=== PATIENT | female | born 1960 | race Caucasian/White ===

== ENCOUNTER 2024-03-19 08:02 | Inpatient (IN) ==
[2024-03-19] MEDS: Morphine 4 MG/ML VIAL (1 ml) IV ONE (09:49)
[2024-03-19] MEDS ORDERED: Al Hydrox/Mg Hydrox/Simet LIQ 30 ML UDC PO PRN (09:51)
[2024-03-19 10:10] LABS: ABS Basophils 0.1 10^3/uL (0.0-0.1); ABS Eosinophils 0.1 10^3/uL (0.0-0.5); ABS Lymphocytes 1.4 10^3/uL (1.0-4.8); ABS Nucleated RBC 0.01 10^3/ul; Eosinophil % 1.3 %; Hematocrit 42.4 % (35-45); Hemoglobin 14.4 g/dL (11.5-14.3); Lymphocyte % 11.8 %; Mean Corpuscular Hgb Conc 33.9 g/dL (31-36); Mean Corpuscular Volume 82.7 fL (80-97); Mean Platelet Volume 8.5 fL (7.5-11.2); Nucleated Red Blood Cells % 0.1 %/100WBC (0.0-0.8); Platelet Count 226 10^3/uL (150-450); Red Blood Count 5.13 10^6/uL (3.63-4.92); Red Cell Distribution Width 17.4 % (12-17); White Blood Count 11.6 10^3/uL (3.8-11.8)
[2024-03-19 11:09] LABS: Albumin 4.6 g/dL (3.5-5.7); Albumin/Globulin Ratio 1.9 (1-3); Calcium 10.6 mg/dL (8.6-10.3); Creatinine, Serum 0.79 mg/dL (0.51-0.95); Globulin 2.4 g/dL (2-4); Potassium 4.6 mmol/L (3.5-5.0); Total Bilirubin 0.9 mg/dL (0.2-1.0)
[2024-03-19] MEDS ORDERED: Dextrose 50% Syringe 50 ml 25 GM/50 ML SYRINGE IV PUSH PRN (12:06)
[2024-03-19] MEDS: Enoxaparin 40 MG/0.4 ML SYR SUBCUT SCH (13:50)
[2024-03-19] MEDS: NS 0.9% 1000 ml BAG 1,000 ML IV SCH (13:50)
[2024-03-19] MEDS: Morphine 2 MG/ML SYRINGE IV PRN (19:24)
[2024-03-19] MEDS ORDERED: Ondansetron 4 mg VIAL 2 MG/ML 2 ml VIAL IV PRN (20:03)
[2024-03-19] MEDS ORDERED: Metoclopramide 5 MG/ML VIAL (10 mg) IV PRN (20:03)
[2024-03-19] MEDS ORDERED: Naloxone 0.4 mg VIAL 0.4 mg/ml 1 ml VIAL IV PRN (20:03)
[2024-03-19] MEDS ORDERED: fentaNYL 100 mcg/2 ml 50 MCG/ML VIAL IV PRN (20:03)
[2024-03-19] MEDS ORDERED: NS 0.45% 1000 ml BAG 1,000 ML IV SCH (21:00)
[2024-03-19] MEDS: Insulin GLARGINE 100 un/ml 10 ml VIAL SUBCUT SCH (23:05)
[2024-03-19] MEDS: Lactated Ringers 1000 ml BAG 1,000 ML IV SCH (23:10)
[2024-03-20 06:21] LABS: ABS Basophils 0.1 10^3/uL (0.0-0.1); ABS Eosinophils 0.4 10^3/uL (0.0-0.5); ABS Lymphocytes 1.7 10^3/uL (1.0-4.8); ABS Monocytes 0.7 10^3/uL (0.0-0.9); ABS Neutrophils 4.9 10^3/uL (1.5-7.6); Eosinophil % 4.6 %; Hematocrit 39.6 % (35-45); Hemoglobin 13.1 g/dL (11.5-14.3); Lymphocyte % 22.1 %; Mean Corpuscular Hemoglobin 27.6 pg (27-33); Mean Corpuscular Volume 83.4 fL (80-97); Mean Platelet Volume 8.3 fL (7.5-11.2); Platelet Count 182 10^3/uL (150-450); Red Blood Count 4.75 10^6/uL (3.63-4.92); Red Cell Distribution Width 17.6 % (12-17); White Blood Count 7.7 10^3/uL (3.8-11.8)
[2024-03-20] MEDS ORDERED: ROPIVACAINE 5 MG/ML 30 ML BTL (0.5%) ONE (06:37)
[2024-03-20 06:51] LABS: Calcium 9.1 mg/dL (8.6-10.3); Creatinine, Serum 0.77 mg/dL (0.51-0.95); Magnesium 1.7 mg/dL (1.9-2.7); Potassium 4.5 mmol/L (3.5-5.0); eGFR CKD-EPI 85.6 (>60)
[2024-03-20] MEDS: Magnesium Sulfate 2 gm BAG 2 GM/50 ML BAG IVPB ONE (08:49)
[2024-03-20] MEDS: Scopolamine 1 mg/72hr PATCH TRANSDERM ONE (13:27)
[2024-03-20] MEDS ORDERED: ceFAZolin 2 GM PREMIX 2 GM/50 ML BAG ONE (13:48)
[2024-03-20] MEDS ORDERED: Tranexamic Acid 1 GM/100ML BAG 2,000 MG/200 ML BAG IV ONE (14:05)
[2024-03-20] MEDS ORDERED: Rocuronium 50 mg VIAL 10 mg/ml 5 ml VIAL (50 mg) ONE (15:14)
[2024-03-20] MEDS ORDERED: Ondansetron 4 mg VIAL 2 MG/ML 2 ml VIAL ONE (15:14)
[2024-03-20] MEDS ORDERED: Propofol 10 MG/ML 20 ML BTL ONE (15:14)
[2024-03-20] MEDS ORDERED: Lidocaine 2% PF 5 ML VIAL ONE (15:14)
[2024-03-20] MEDS ORDERED: Dexamethasone IV 4 MG/ML VIAL 1 ml VIAL ONE (15:14)
[2024-03-20] MEDS ORDERED: Midazolam 2 mg/2 ml VIAL 1 mg/ml 2 ml VIAL (2 mg) ONE (15:15)
[2024-03-20] MEDS ORDERED: fentaNYL 250 mcg/5 ml 50 MCG/ML 5 ml VIAL (250 MCG) ONE (15:15)
[2024-03-20] MEDS: Acetaminophen IV 1 GM/100ML 1,000 MG/100 ML BAG IV ONE (15:39)
[2024-03-20] MEDS: Buffered Lidocaine 1% SYRIN 1 ml INTRADERM ONE (15:39)
[2024-03-20] MEDS ORDERED: Sevoflurane BOTTLE ONE (16:21)
[2024-03-20] MEDS ORDERED: Ondansetron ODT 4 mg TAB 4 MG TAB PO PRN (16:43)
[2024-03-20] MEDS ORDERED: Calcium Carb (TUMS) 500 mg CHEW TAB PO PRN (16:43)
[2024-03-20] MEDS ORDERED: Magnesium Hydroxide LIQ 30 ML UDC PO PRN (16:43)
[2024-03-20] MEDS ORDERED: HYDROmorphone 0.5 MG/0.5 ML SYRINGE ONE (16:46)
[2024-03-20] MEDS: Lactated Ringers 1000 ml BAG 1,000 ML IV SCH ×2 (18:41→21:43)
[2024-03-20] MEDS: Nystatin TOP POWDER 15 GM BTL TOPICAL ONE (21:43)
[2024-03-20] MEDS: Magnesium Hydroxide LIQ 30 ML UDC PO SCH (23:32)
[2024-03-20] MEDS: ceFAZolin 2 GM PREMIX 2 GM/50 ML BAG IV SCH (23:35)
[2024-03-21 06:01] LABS: Hematocrit 35.5 % (35-45); Hemoglobin 11.8 g/dL (11.5-14.3); Mean Platelet Volume 8.3 fL (7.5-11.2); Platelet Count 246 10^3/uL (150-450)
[2024-03-21 06:22] LABS: Calcium 9.3 mg/dL (8.6-10.3); Creatinine, Serum 0.85 mg/dL (0.51-0.95); Potassium 5.3 mmol/L (3.5-5.0)
[2024-03-21] MEDS: Vitamin THERAPEUTIC TAB PO SCH (08:52)
[2024-03-21] MEDS: Enoxaparin 40 MG/0.4 ML SYR SUBCUT SCH (12:22)
[2024-03-21] MEDS: Lactulose 30 ml UDC PO PRN (14:23)
[2024-03-21 15:05] LABS: Calcium 8.8 mg/dL (8.6-10.3); Creatinine, Serum 0.82 mg/dL (0.51-0.95); Potassium 4.9 mmol/L (3.5-5.0); eGFR CKD-EPI 79.3 (>60)
[2024-03-21] MEDS: Insulin GLARGINE 100 un/ml 10 ml VIAL SUBCUT SCH (21:39)
[2024-03-22 06:13] LABS: Hemoglobin 10.7 g/dL (11.5-14.3); Mean Platelet Volume 8.1 fL (7.5-11.2); Platelet Count 227 10^3/uL (150-450)
[2024-03-22] MEDS: Mineral Oil ENEMA 118 ML/BOTTLE BOTTLE PR ONE (14:59)
[2024-03-22] MEDS: Clotrimazole 1% CREAM 30 gm TOPICAL SCH (21:07)
[2024-03-22] MEDS: Insulin GLARGINE 100 un/ml 10 ml VIAL SUBCUT SCH (21:09)
[2024-03-23 05:56] LABS: Hematocrit 32.2 % (35-45); Hemoglobin 10.9 g/dL (11.5-14.3); Mean Platelet Volume 8.1 fL (7.5-11.2); Platelet Count 257 10^3/uL (150-450)
[2024-03-23 10:19] VITALS: BP 143/61
== END 2024-03-23 12:05 | disposition home or self-care (01) | DRG 522 ==
LOC: ED 08:02 → EDHOLD 09:51 → SUATTDRO 11:22 → SSU 12:13
PROVIDERS: ADMIT Internal Medicine; ATTEND Family Medicine